=== PATIENT | female | born 1990 | race Caucasian/White ===

== ENCOUNTER 2017-04-23 18:44 | Emergency (ER) | payer SELFPAY ==
[~2017-04-23] VITALS: Ht 149.9 cm; Wt 72.0 kg
[2017-04-23 18:47] VITALS: BP 155/110; PULSE 116; RESP 16; TEMP 99; O2SAT 100
--- NOTE | 2017-04-23 20:03 | PD ---
HPI Chief Complaint: Abdominal Pain Time Seen by Provider: 19:55 Travel History International Travel<30 days: No Contact w/Intl Traveler<30days: No Traveled to known affect area: No History of Present Illness HPI 27-year-old female presents to the emergency Department with complaint of nausea , vomiting, diarrhea, lower abdominal pain 4 days. Onset of right upper quadrant abdominal pain yesterday. Reports fever of 101.0 today. Denies hematemesis, hematuria, hematochezia. Reports foul-smelling vaginal discharge that she noticed today. Says her pain is consistent with past history of PID. Unknown exposure to STDs. Last menstrual period was in 2009. She has history of ovarian cancer and has not had her menses since after chemotherapy and radiation in 2009. History of neurogenic bladder and has to straight cath herself. Reports a feeling of pressure in her vagina. Denies any recent illness to include cough, nasal congestion, ear pain, sore throat. Denies chest pain or shortness of breath. Symptoms are moderate to severe in severity. Has taken Tylenol for symptom management. No known relieving or aggravating factors. Says she just moved here from [place]. Does not have an established primary care provider or aurist. History of ovarian cancer, endometriosis, neurogenic bladder, gastroparesis. History of partial removal of ovary and vaginal mass. Denies other abdominal surgeries. Has no other medical complaints. Multiple allergies as listed on the chart. No other modifying factors or associated signs and symptoms. PFSH Past Medical History Chemotherapy: Yes (OVARIAN CANCER/2009) ?: Not Past Surgical History Hysterectomy: Yes (PARTIAL) Social History Tobacco Use: No Allergies-Medications (Allergen,Severity, Reaction): Coded Allergies: ketorolac (Verified Allergy, Severe, Anaphylaxis, 04/23/17) metoclopramide (Verified Allergy, Severe, Anaphylaxis, 04/23/17) HIVES tramadol (Verified Allergy, Severe, Anaphylaxis, 04/23/17) hydromorphone (Verified Allergy, Intermediate, HIVES, 04/23/17) ibuprofen (Verified Allergy, Intermediate, HIVES, 04/23/17) ondansetron (Verified Allergy, Intermediate, HIVES, 04/23/17) Uncoded Allergies: MORPHIN (Allergy, Severe, Anaphylaxis, 04/23/17) Reported Meds & Prescriptions Reported Meds & Active Scripts Active No Active Prescriptions or Reported Medications Review of Systems Except as stated in HPI: all other systems reviewed are Neg Physical Exam Narrative GENERAL: Well-nourished, well-developed female patient, in no acute distress; low-grade fever 99.0, nontoxic-appearing SKIN: Warm and dry. HEAD: Atraumatic. Normocephalic. EYES: Pupils equal and round. No scleral icterus. No injection or drainage. ENT: Mucous membranes pink and moist. NECK: Trachea midline. No lymphadenopathy. CARDIOVASCULAR: Tachycardiac rate and rhythm. No murmur appreciated. RESPIRATORY: No accessory muscle use. Clear to auscultation. Breath sounds equal bilaterally. GASTROINTESTINAL: Abdomen soft, tenderness to right upper quadrant, nondistended. Bilateral pelvic region with tenderness to palpation. Hepatic and splenic margins not palpable. Positive guarding on palpation to right upper quadrant. No rigidity or rebound tenderness. PELVIC: Exam done in the presence of a nurse. Speculum exam reveals edematous and erythematous foul smelling, yellowish, mucopurulent discharge. Bimanual exam reveals no palpable masses or adnexa tenderness, no uterine tenderness. Positive cervical motion tenderness. No groin lymphadenopathy. MUSCULOSKELETAL: No obvious deformities. No clubbing. No cyanosis. No edema. NEUROLOGICAL: Awake and alert. No obvious cranial nerve deficits. Motor grossly within normal limits. Normal speech. PSYCHIATRIC: Appropriate mood and affect; insight and judgment normal. Data Data Last Documented VS Vital Signs Date Time Temp Pulse Resp B/P (MAP) Pulse Ox O2 Delivery O2 Flow Rate FiO2 04/23/17 18:47 99.0 116 16 155/110 (125) 100 Orders Orders Complete Blood Count With Diff (04/23/17 20:04) Comprehensive Metabolic Panel (04/23/17 20:04) Lipase (04/23/17 20:04) Urinalysis - C+S If Indicated (04/23/17 20:04) Iv Access Insert/Monitor (04/23/17 20:04) Ecg Monitoring (04/23/17 20:04) Oximetry (04/23/17 20:04) Ed Urine Pregnancytest Poc (04/23/17 20:04) Gc And Chlamydia Pcr (04/23/17 20:04) Wet Prep Profile (04/23/17 20:04) Lactic Acid (04/23/17 20:04) Blood Culture (04/23/17 20:04) Ct Abd/Pel W Iv Contrast(Rout) (04/23/17 20:04) Sodium Chlor 0.9% 1000 Ml Inj (Ns 1000 M (04/23/17 20:15) Ceftriaxone Inj (Rocephin Inj) (04/23/17 20:45) Azithromycin (Zithromax) (04/23/17 20:45) Doxycycline Inj (Vibramycin Inj) (04/23/17 20:45) Oxycodone Liq (Roxicodone Intensol Liq) (04/23/17 21:00) [facility] Medical Decision Making Medical Screen Exam Complete: Yes Emergency Medical Condition: Yes Medical Record Reviewed: Yes Differential Diagnosis PID, Dawson Flash syndrome, sepsis, gastroenteritis, gastroparesis, kidney stone, pyelonephritis, cystitis, urinary tract infection Narrative Course 27-year-old female with history of ovarian cancer, endometriosis, neurogenic bladder, gastroparesis. Right upper quadrant abdominal pain, pelvic pain, vaginal discharge, nausea, vomiting, diarrhea 4 days. Low-grade fever of 99.0 in the ER. MAXIMUM TEMPERATURE 101.0. Tachycardic 110-120. IV site obtained. CBC, CMP, lipase, blood cultures, lactic acid, UPT, urinalysis, wet prep, vomiting, gonorrhea, CT abdomen/pelvis ordered. Patient has multiple allergies to pain medications. She reports taking 6 [id number] Tylenol at once earlier today of unknow dosage. I discussed Tylenol dosing with the patient and she verbalized understanding and agreement. IV fluid bolus ordered. I offered the patient antiemetic and she declined. 0: Cervix is edematous and erythematous with foul-smelling mucopurulent discharge. Positive cervical motion tenderness. Rocephin 2 g IV, azithromycin 1 g PO, and doxycycline 100 mg IV ordered. Oxycodone 5 mg ordered. 2100: Dr. Jade assumed patient care at this time. See her note for final patient disposition. Scripts No Active Prescriptions or Reported Meds Idalia Ferrell Apr 23, 2017 20:03
[2017-04-23] MEDS ORDERED: SODIUM CHLOR 0.9% 1000 ML INJ 1,000 ML IV ONE (20:15)
[2017-04-23] MEDS ORDERED: DOXYCYCLINE INJ 100 MG in SODIUM CHLORIDE 0.9% INJ 100 ML IV ONE (20:45)
[2017-04-23] MEDS ORDERED: cefTRIAXone INJ 2,000 MG in SODIUM CHLORIDE 0.9% INJ 100 ML IV ONE (20:45)
[2017-04-23] MEDS ORDERED: oxyCODONE HCL ORAL CONC 5 MG/0.25 ML SYRINGE PO ONE (21:00)
[2017-04-23 21:22] LABS: BLOOD, URINE NEG (NEG); GLUCOSE,URINE NEG (NEG); KETONE, URINE TRACE mg/dL (NEG); MUCUS URINE FEW /lpf (OCC); NITRITE,URINE NEG (NEG); PH, URINE 5.5 (5.0-8.5); SQUAMOUS EPITHELIAL CELL URINE 4 /hpf (0-5); URINE COLOR YELLOW (YELLW/STRAW)
[2017-04-23 21:23] LABS: BACTERIA, URINE FEW /hpf; COMMENT (UR) CATH-CULTURE IND; CULTURE IF INDICATED CATH CULTURE IND
[2017-04-23 21:28] LABS: AUTOMATED NEUTROPHIL # 5.5 TH/MM3 (1.8-7.7); BASOPHIL % 0.4 % (0.0-2.0); EOSINOPHIL % 0.1 % (0.0-4.0); HEMATOCRIT 39.7 % (35.0-46.0); HEMO FLAGS DIFF FINAL; LYMPH % 20.5 % (9.0-44.0); LYMPHOCYTE # 1.5 TH/MM3 (1.0-4.8); MEAN CELL VOLUME 89.3 FL (80.0-100.0); MEAN CORPUSCULAR HEMOGLOBIN 31.6 PG (27.0-34.0); MEAN CORPUSCULAR HGB CONC 35.4 % (32.0-36.0); MONO % 5.1 % (0.0-8.0); NEUT % 73.9 % (16.0-70.0); PLATELET COUNT 300 TH/MM3 (150-450); RED BLOOD COUNT 4.45 MIL/MM3 (4.00-5.30); RED CELL DISTRIBUTION WIDTH 13.6 % (11.6-17.2); WHITE BLOOD COUNT 7.5 TH/MM3 (4.0-11.0)
[2017-04-23] MEDS: AZITHROMYCIN 250 MG TAB PO ONE ×2 (21:29→21:50)
[2017-04-23 21:34] LABS: ALT (GPT) 31 U/L (10-53); ANION GAP 8 MEQ/L (5-15); AST (GOT) 21 U/L (15-37); BICARBONATE 26.6 MEQ/L (21.0-32.0); BLOOD UREA NITROGEN 13 MG/DL (7-18); CHLORIDE 101 MEQ/L (98-107); GLOMERULAR FILTRATION RATE 99 ML/MIN (>89); POTASSIUM 3.6 MEQ/L (3.5-5.1); SODIUM (NA) 136 MEQ/L (136-145)
[2017-04-23 21:37] LABS: ALKALINE PHOSPHATASE 112 U/L (45-117); TOTAL BILIRUBIN ADULT 0.3 MG/DL (0.2-1.0)
[2017-04-23 21:50] VITALS: BP 129/71; PULSE 94; RESP 18; TEMP 99; O2SAT 100
--- NOTE | 2017-04-23 22:06 | RADRPT ---
EXAM DATE/TIME: 04/23/2017 21:52 [facility] COMPARISON: No previous studies available for comparison. INDICATIONS : Lower abdominal pain with nausea and vomiting. ORAL CONTRAST: No oral contrast ingested. RADIATION DOSE: 10.85 CTDIvol (mGy) MEDICAL HISTORY : Gastroparesis. Ovarian cancer. SURGICAL HISTORY : None. ENCOUNTER: Initial ACUITY: 4 - 6 days PAIN SCALE: 4/10 LOCATION: Bilateral lower quadrant TECHNIQUE: Volumetric scanning of the abdomen and pelvis was performed. Using automated exposure control and ad justment of the mA and/or kV according to patient size, radiation dose was kept as low as reasonably achievable to obtain optimal diagnostic quality images. DICOM format image data is available electro nically for review and comparison. FINDINGS: LOWER LUNGS: A 7 mm nodule is present in the inferior aspect of the left upper lobe. LIVER: Diffuse low density without lesion. There is no dilation of the biliary tree. No calcified gallston es. SPLEEN: Normal size without lesion. PANCREAS: Within normal limits. KIDNEYS: Normal in size and shape. There is no mass, stone, or hydronephrosis. ADRENAL GLANDS: Within normal limits. VASCULAR: There is no aortic aneurysm. BOWEL/MESENTERY: The stomach, small bowel, and colon demonstrate no acute abnormality. There is no free intraperitone al air or fluid. Appendix is normal. There is mild sigmoid diverticulosis. ABDOMINAL WALL: Within normal limits. RETROPERITONEUM: There is no lymphadenopathy. BLADDER: No wall thickening or mass. REPRODUCTIVE: No acute abnormality. INGUINAL: There is no lymphadenopathy or hernia. MUSCULOSKELETAL: No acute abnormality. CONCLUSION: 1. No acute abnormality is identified within the abdomen or pelvis on this noncontrast examination. 2. There is a 7 mm nodule identified at the left lung base. Suggest correlating with any prior imagin g studies to confirm stability. 3. Hepatic steatosis. Josh Yun MD on April 23, 2017 at 22:02 Board Certified Radiologist. This report was verified electronically.
[2017-04-23 23:57] LABS: CHLAMYDIA PCR NOT DETECTED (NOT DETECT); NEISSERIA PCR NOT DETECTED (NOT DETECT)
--- NOTE | 2017-04-23 23:59 | PD ---
Physical Exam Date Seen by Provider: Apr 23, 2017 Time Seen by Provider: 22:00 Narrative Accepted in transfer of care Data Data Last Documented VS Vital Signs Date Time Temp Pulse Resp B/P (MAP) Pulse Ox O2 Delivery O2 Flow Rate FiO2 04/24/17 01:49 04/23/17 21:50 99.0 94 18 100 Room Air Orders Orders Complete Blood Count With Diff (04/23/17 20:04) Comprehensive Metabolic Panel (04/23/17 20:04) Lipase (04/23/17 20:04) Urinalysis - C+S If Indicated (04/23/17 20:04) Iv Access Insert/Monitor (04/23/17 20:04) Ecg Monitoring (04/23/17 20:04) Oximetry (04/23/17 20:04) Ed Urine Pregnancytest Poc (04/23/17 20:04) Gc And Chlamydia Pcr (04/23/17 20:04) Wet Prep Profile (04/23/17 20:04) Lactic Acid (04/23/17 20:04) Blood Culture (04/23/17 20:04) Sodium Chlor 0.9% 1000 Ml Inj (Ns 1000 M (04/23/17 20:15) Ceftriaxone Inj (Rocephin Inj) (04/23/17 20:45) Azithromycin (Zithromax) (04/23/17 20:45) Doxycycline Inj (Vibramycin Inj) (04/23/17 20:45) Urine Culture (04/23/17 20:30) Oxycodone (Roxicodone) (04/23/17 21:45) Ct Abd/Pel W/O Iv Contrast (04/23/17 ) Ed Discharge Order (04/24/17 01:30) Labs Laboratory Tests Test 04/23/17 20:30 04/23/17 20:40 White Blood Count 7.5 TH/MM3 Red Blood Count 4.45 MIL/MM3 Hemoglobin 14.1 GM/DL Hematocrit 39.7 % Mean Corpuscular Volume 89.3 FL Mean Corpuscular Hemoglobin 31.6 PG Mean Corpuscular Hemoglobin Concent 35.4 % Red Cell Distribution Width 13.6 % Platelet Count 300 TH/MM3 Mean Platelet Volume 8.3 FL Neutrophils (%) (Auto) 73.9 % Lymphocytes (%) (Auto) 20.5 % Monocytes (%) (Auto) 5.1 % Eosinophils (%) (Auto) 0.1 % Basophils (%) (Auto) 0.4 % Neutrophils # (Auto) 5.5 TH/MM3 Lymphocytes # (Auto) 1.5 TH/MM3 Monocytes # (Auto) 0.4 TH/MM3 Eosinophils # (Auto) 0.0 TH/MM3 Basophils # (Auto) 0.0 TH/MM3 CBC Comment DIFF FINAL Differential Comment Urine Color YELLOW Urine Turbidity HAZY Urine pH 5.5 Urine Specific [place] 1.019 Urine Protein TRACE mg/dL Urine Glucose (UA) NEG mg/dL Urine Ketones TRACE mg/dL Urine Occult Blood NEG Urine Nitrite NEG Urine Bilirubin NEG Urine Urobilinogen LESS THAN 2.0 MG/DL Urine Leukocyte Esterase MOD Urine RBC 2 /hpf Urine WBC 7 /hpf Urine Squamous Epithelial Cells 4 /hpf Urine Bacteria FEW /hpf Urine Mucus FEW /lpf Microscopic Urinalysis Comment CATH-CULTURE IND Clue Cells (Wet Prep) NONE SEEN Vaginal Trichomonas (Wet Prep) NONE SEEN Vaginal Yeast (Wet Prep) NONE SEEN Blood Urea Nitrogen 13 MG/DL Creatinine 0.70 MG/DL Random Glucose 93 MG/DL Total Protein 9.6 GM/DL Albumin 4.8 GM/DL Calcium Level 9.5 MG/DL Alkaline Phosphatase 112 U/L Aspartate Amino Transf (AST/SGOT) 21 U/L Alanine Aminotransferase (ALT/SGPT) 31 U/L Total Bilirubin 0.3 MG/DL Sodium Level 136 MEQ/L Potassium Level 3.6 MEQ/L Chloride Level 101 MEQ/L Carbon Dioxide Level 26.6 MEQ/L Anion Gap 8 MEQ/L Estimat Glomerular Filtration Rate 99 ML/MIN Lactic Acid Level 1.4 mmol/L Lipase 66 U/L Chlamydia trachomatis DNA (PCR) NOT DETECTED Neisseria gonorrhoeae DNA (PCR) NOT DETECTED [facility] Medical Record Reviewed: Yes Supervised Visit with RASHID: Yes Interpretation(s) Last Impressions Abdomen/Pelvis CT 04/23/17 0000 Signed Impressions: Service Date/Time: Sunday, April 23, 2017 21:52 - CONCLUSION: 1. No acute abnormality is identified within the abdomen or pelvis on this noncontrast examination. 2. There is a 7 mm nodule identified at the left lung base. Suggest correlating with any prior imaging studies to confirm stability. 3. Hepatic steatosis. Josh Yun MD CBC & BMP Diagram 04/23/17 20:30 Total Protein 9.6 H, Albumin 4.8, Calcium Level 9.5, Alkaline Phosphatase 112, Aspartate Amino Transf (AST/SGOT) 21, Alanine Aminotransferase (ALT/SGPT) 31, Total Bilirubin 0.3 Vital Signs Date Time Temp Pulse Resp B/P (MAP) Pulse Ox O2 Delivery O2 Flow Rate FiO2 04/24/17 01:49 04/23/17 21:50 99.0 94 18 129/71 (90) 100 Room Air 04/23/17 18:47 99.0 116 16 155/110 (125) 100 Differential Diagnosis Abdominal pain PID UTI appendicitis Narrative Course 27 year-old female presents with lower abdominal pain vaginal discharge and concern for possible pelvic infection with prior history of PID abdominal exam tender to palpation suprapubic region pelvic exam is not repeated as it was performed by nurse practitioner prior to my taking over the patient's care specimens are collected. Lab values are resulted and CT abdomen and pelvis resulted and reveals no acute process however physical exam is consistent with PID and patient has received IV antibiotics. Patient is stable for outpatient management on oral antibiotics. I agree with assessment and management plan of patient as initiated by Idalia RIVERA. Diagnosis Primary Impression: PID (acute pelvic inflammatory disease) Referrals: [facility] call for appointment Primary Care Physician call for appointment Patient Instructions: General Instructions, Narcotic given in the ED Additional Instruction: Complete course of antibiotic as prescribed Follow-up with your primary care provider Med/Other Pt SpecificInfo: Prescription(s) given Scripts Promethazine (Phenergan) 25 Mg Tablet 25 MG PO Q6H Y for NAUSEA OR VOMITING, #10 TAB 0 Refills Prov: Ivy Jade MD 04/24/17 Oxycodone-Acetaminophen (Percocet) 5-325 mg Tab 1 TAB PO Q6H Y for PAIN, #7 TAB 0 Refills Prov: Ivy Jade MD 04/24/17 Doxycycline Hyclate (Doxycycline Hyclate) 100 Mg Cap 100 MG PO BID for Infection, #20 CAP 0 Refills Prov: Ivy Jade MD 04/24/17 Disposition: DISCHARGE HOME Condition: Stable Ivy Jade MD Apr 23, 2017 23:59
[2017-04-24] MEDS ORDERED: PROM25TA10 PO (00:27)
[2017-04-24] MEDS ORDERED: PERC5TAB12 PO (00:27)
[2017-04-24] MEDS ORDERED: DOXY100C PO (00:27)
== END 2017-04-24 01:51 | disposition home or self-care (01) ==
LOC: NEPC 18:44
DX: N73.9 Female pelvic inflammatory disease, unspecified (principal); R50.9 Fever, unspecified; R00.0 Tachycardia, unspecified; R19.7 Diarrhea, unspecified; R10.11 Right upper quadrant pain; N89.8 Other specified noninflammatory disorders of vagina; Z85.43 Personal history of malignant neoplasm of ovary; Z87.42 Personal history of other diseases of the female genital tract; Z87.448 Personal history of other diseases of urinary system; Z87.19 Personal history of other diseases of the digestive system
CPT/HCPCS: 74176; 80053; 81001; 83605; 83690; 84703; 85025; 87040; 87086; 87210; 87491; 87591; 96365; 96367; 99285; J0696; J7030

== ENCOUNTER 2017-05-28 14:14 | Emergency (ER) | payer OTHER ==
[~2017-05-28] VITALS: Ht 149.9 cm; Wt 72.0 kg
[~2017-05-28 14:14] MED LIST: DOXY100C PO; PERC5TAB12 PO; PROM25TA10 PO
[2017-05-28 14:15] VITALS: BP 150/84; PULSE 116; RESP 18; TEMP 98.2; O2SAT 98
[2017-05-28 16:48] LABS: BACTERIA, URINE FEW /hpf; BILIRUBIN, URINE NEG (NEG); BLOOD, URINE SMALL (NEG); GLUCOSE,URINE NEG (NEG); KETONE, URINE NEG (NEG); MUCUS URINE FEW /lpf (OCC); NITRITE,URINE NEG (NEG); SQUAMOUS EPITHELIAL CELL URINE 16 /hpf (0-5); URINE COLOR YELLOW (YELLW/STRAW); URINE LEUKOCYTE ESTERASE LARGE (NEG)
[2017-05-28] MEDS ORDERED: NITROFURANTOIN MONOHYD MACROCR 100 MG CAP PO ONE (17:00)
[2017-05-28] MEDS ORDERED: PHENAZOPYRIDINE HCL 200 MG TAB PO ONE (17:00)
--- NOTE | 2017-05-28 17:08 | PD ---
HPI Chief Complaint: Abdominal Pain Time Seen by Provider: 15:53 Travel History International Travel<30 days: No Contact w/Intl Traveler<30days: No Traveled to known affect area: No History of Present Illness HPI 27-year-old female presents to the ED for evaluation of 3 day history of lower abdominal pain, urinary urgency. She states that she's had a fever, measured 101.2 and has been nauseated and vomiting during the same period of time. She also complains of watery diarrhea which she states "is similar to when I had C. difficile." She states that she took antibiotics in March for PID. She endorses history of ovarian cancer with partial oophorectomy and chemotherapy and radiation. She endorses thick, foul-smelling vaginal discharge. She does not have a primary care provider. She states that she just moved here in March. She also complains of a spider bite on her left leg. Denies numbness , tingling, weakness, limitation to range of motion of the extremity. No treatment attempted at home. PFSH Past Medical History Chemotherapy: Yes (OVARIAN CANCER/2009) Gastrointestinal Disorders: Yes (GASTROPARESIS) Reproductive: Yes (ENDOMETROSIS) ?: Not LMP: 2009 Past Surgical History Hysterectomy: Yes (PARTIAL RIGHT OVARY REMOVAL PER PT.) Other Surgery: Yes (SUPRA PUBIC CATH SX. HISTORY NOW REVERSED, VAGINAL MASS REMOVAL ) Social History Alcohol Use: No Tobacco Use: No Substance Use: No Allergies-Medications (Allergen,Severity, Reaction): Coded Allergies: ketorolac (Verified Allergy, Severe, Anaphylaxis, 05/28/17) metoclopramide (Verified Allergy, Severe, Anaphylaxis, 05/28/17) HIVES tramadol (Verified Allergy, Severe, Anaphylaxis, 05/28/17) hydromorphone (Verified Allergy, Intermediate, HIVES, 05/28/17) ibuprofen (Verified Allergy, Intermediate, HIVES, 05/28/17) ondansetron (Verified Allergy, Intermediate, HIVES, 05/28/17) vancomycin (Verified Allergy, Intermediate, Hives, 05/28/17) Iodinated Contrast- Oral and IV Dye (Verified Allergy, Unknown, Hives, ) Uncoded Allergies: MORPHIN (Allergy, Severe, Anaphylaxis, 04/23/17) Reported Meds & Prescriptions Reported Meds & Active Scripts Active Pyridium (Phenazopyridine HCl) 100 Mg Tab 100 Mg PO Q8HR Macrobid (Nitrofurantoin Monoh/Nitrofur Macro) 100 Mg Cap 100 Mg PO BID 7 Days Phenergan (Promethazine HCl) 25 Mg Tablet 25 Mg PO Q6H PRN Percocet (Oxycodone-Acetaminophen) 5-325 mg Tab 1 Tab PO Q6H PRN Doxycycline Hyclate 100 Mg Cap 100 Mg PO BID Review of Systems Except as stated in HPI: all other systems reviewed are Neg Physical Exam Narrative GENERAL: Well-nourished, well-developed female in no acute distress. SKIN: Focused skin assessment warm/dry. HEAD: Normocephalic. EYES: No scleral icterus. No injection or drainage. NECK: Supple, trachea midline. No JVD or lymphadenopathy. CARDIOVASCULAR: Regular rate and rhythm without murmurs, gallops, or rubs. RESPIRATORY: Breath sounds equal bilaterally. No accessory muscle use. GASTROINTESTINAL: Abdomen soft, nondistended. Active bowel sounds. Positive suprapubic tenderness to palpation. MUSCULOSKELETAL: No cyanosis, or edema. BACK: Nontender without obvious deformity. No CVA tenderness. Data Data Last Documented VS Vital Signs Date Time Temp Pulse Resp B/P (MAP) Pulse Ox O2 Delivery O2 Flow Rate FiO2 05/28/17 14:15 98.2 116 18 150/84 (106) 98 Orders Orders Urinalysis - C+S If Indicated (05/28/17 15:53) Ed Urine Pregnancytest Poc (05/28/17 15:53) Urine Culture (05/28/17 16:18) Nitrofurantoin Monohyd Macrocr (Macrobid (05/28/17 17:00) Phenazopyridine (Pyridium) (05/28/17 17:00) Ed Discharge Order (05/28/17 17:18) Labs Laboratory Tests Test 05/28/17 16:18 Urine Color YELLOW Urine Turbidity HAZY Urine pH 7.0 Urine Specific [place] 1.017 Urine Protein TRACE mg/dL Urine Glucose (UA) NEG mg/dL Urine Ketones NEG mg/dL Urine Occult Blood SMALL Urine Nitrite NEG Urine Bilirubin NEG Urine Urobilinogen LESS THAN 2.0 MG/DL Urine Leukocyte Esterase LARGE Urine RBC 2 /hpf Urine WBC 27 /hpf Urine Squamous Epithelial Cells 16 /hpf Urine Bacteria FEW /hpf Urine Mucus FEW /lpf Microscopic Urinalysis Comment CULTURE INDICATED MDM Medical Decision Making Medical Screen Exam Complete: Yes Emergency Medical Condition: Yes Differential Diagnosis UTI versus PID versus STI versus other Narrative Course 27-year-old female presents to the ED with multiple vague complaints. Seems as if her symptoms are all secondary to dysuria, although she gives a very disorganized history. She is afebrile on presentation. On exam the patient is nontoxic appearing. There is suprapubic tenderness with exams otherwise unremarkable. I offered the patient a pelvic exam which she declined. I reviewed her record she does have a history of PID. She is not followed up with the dispute coordinator and endorses unprotected sex since that time. Urine test negative. UA with evidence of UTI. Patient was prescribed Macrobid and Pyridium, first dose was administered in the ED. She is instructed to take the medications as prescribed, abstain from sex until follow- up with dispute coordinator. We discussed reasons to return to the ED. She indicated understanding of the instructions. She is stable and discharged home. Diagnosis Primary Impression: Urinary tract infection Qualified Codes: N30.00 - Acute cystitis without hematuria Additional Impression: Vaginal discharge Referrals: [facility] Patient Instructions: General Instructions, Urinary Tract Infection in Women ( ED) Additional Instructions: Rest, hydrate. Take all antibiotics until every pill was gone. Avoid sexual activity until you've had your symptoms fully evaluated. Follow-up with the [facility] for further evaluation of your gynecologic issues as discussed. Return to the ED for any urgent or emergent medical condition. Med/Other Pt SpecificInfo: Prescription(s) given Scripts Phenazopyridine (Pyridium) 100 Mg Tab 100 MG PO Q8HR for Dysuria, #6 TAB 0 Refills Prov: Miguel A Owens MD 05/28/17 Nitrofurantoin Monohydrate Macrocrystals (Macrobid) 100 Mg Cap 100 MG PO BID for Infection for 7 Days, #14 CAP 0 Refills Prov: Miguel A Owens MD 05/28/17 Disposition: 01 DISCHARGE HOME Condition: Stable Faye Cerrato May 28, 2017 17:08
[2017-05-28] MEDS ORDERED: PHEN0.4T PO (17:16)
[2017-05-28] MEDS ORDERED: MACR100C2 PO (17:16)
== END 2017-05-28 17:42 | disposition home or self-care (01) ==
LOC: NEPD 14:14
DX: N39.0 Urinary tract infection, site not specified (principal); B96.89 Other specified bacterial agents as the cause of diseases classified elsewhere; N89.8 Other specified noninflammatory disorders of vagina
CPT/HCPCS: 81001; 84703; 87086; 99284